=== PATIENT | female | born 1990 ===

== ENCOUNTER 2022-05-09 03:02 | Inpatient (IN) | payer OTHER ==
[2022-05-09] VITALS (10 sets, daily range): BP systolic 109–148; BP diastolic 52–81
[~2022-05-09] VITALS: Ht 157.5 cm; Wt 77.0 kg
[2022-05-09] MEDS ORDERED: OXYTOCIN INJ 10 UNITS/ML VIAL (J2590) IV PRN (03:55)
[2022-05-09] MEDS ORDERED: OXYTOCIN DRIP 30 UNITS in IV 1 EA IV PRN ×6 (03:55)
[2022-05-09] MEDS ORDERED: CARBOPROST TROMETHAMINE 250 MCG/ML AMP IM PRN (03:55)
[2022-05-09] MEDS ORDERED: OXYTOCIN INJ 10 UNITS/ML VIAL (J2590) IM PRN (03:55)
[2022-05-09] MEDS ORDERED: METHYLERGONOVINE MALEATE 0.2 MG/ML VIAL (J2210) IM PRN (03:55)
[2022-05-09] MEDS ORDERED: TRANEXAMIC ACID INJection 1,000 MG in NS 100 ML IV PRN (03:55)
[2022-05-09] MEDS ORDERED: LIDOCAINE 1% MDV 20ML VIAL INFIL PRN (03:55)
[2022-05-09] MEDS ORDERED: PROMETHAZINE 25MG/ML 1ML VIAL IV ONE (04:00)
[2022-05-09] MEDS ORDERED: BUTORPHANOL 2 MG/ML 1ML VIAL IV ONE (04:00)
[2022-05-09 04:13] LABS: HEMATOCRIT 38.9 % (36.0-47.0); HEMOGLOBIN 12.6 g/dl (12.0-15.5); MEAN CORPUSCULAR HEMOGLOBIN 27.8 pg (27.0-33.0); MEAN CORPUSCULAR HGB CONC 32.4 g/dl (32.0-36.5); MEAN CORPUSCULAR VOLUME 85.7 fl (80.0-96.0); PLATELET COUNT, AUTOMATED 299 10^3/uL (150-450); RED BLOOD COUNT 4.54 10^6/uL (4.00-5.40); WHITE BLOOD COUNT 11.3 10^3/uL (4.0-10.0)
[2022-05-09] MEDS ORDERED: PRENTAB9 PO (04:16)
[2022-05-09] MEDS ORDERED: DIBUCAINE 1% OINTMENT 30GM TOP PRN (06:10)
[2022-05-09] MEDS ORDERED: ANUSOL HC CREAM 30GM TOP PRN (06:10)
[2022-05-09] MEDS ORDERED: ACETAMINOPHEN TAB 650MG DOSE (2X325MG) PO PRN (06:10)
[2022-05-09] MEDS ORDERED: IBUPROFEN 800 MG TAB PO PRN (06:10)
[2022-05-09] MEDS ORDERED: METHYLERGONOVINE MALEATE 0.2 MG TAB PO PRN (06:10)
[2022-05-09] MEDS ORDERED: DOCUSATE SODIUM 100MG CAPSULE PO PRN (06:10)
[2022-05-09] MEDS: ACETAMINOPHEN 500 MG TAB PO PRN ×2 (06:30→16:03)
[2022-05-09] MEDS ORDERED: TRANEXAMIC ACID 100 MG/ML 10ML VIAL ONE (06:53)
[2022-05-09] MEDS ORDERED: METHYLERGONOVINE MALEATE 0.2 MG/ML VIAL (J2210) ONE (06:53)
[2022-05-09] MEDS: PRENATAL VITAMINS CHEWABLE TABLET PO SCH (09:21)
[2022-05-09] MEDS: IBUPROFEN 600MG TAB PO PRN (20:30)
[2022-05-10] MEDS: IBUPROFEN 600MG TAB PO PRN (04:46)
[2022-05-10 05:32] VITALS: BP 126/66
[2022-05-10 07:00] LABS: HEMATOCRIT 37.2 % (36.0-47.0); HEMOGLOBIN 12.1 g/dl (12.0-15.5); MEAN CORPUSCULAR HEMOGLOBIN 28.3 pg (27.0-33.0); MEAN CORPUSCULAR HGB CONC 32.5 g/dl (32.0-36.5); MEAN CORPUSCULAR VOLUME 86.9 fl (80.0-96.0); PLATELET COUNT, AUTOMATED 255 10^3/uL (150-450); RED BLOOD COUNT 4.28 10^6/uL (4.00-5.40)
[2022-05-10] MEDS: PRENATAL VITAMINS CHEWABLE TABLET PO SCH (09:47)
== END 2022-05-10 12:45 | disposition home or self-care (01) | DRG 560 ==
LOC: M LDO 03:02 → M LDI 03:37 → M OBS 09:10
PROVIDERS: ADMIT Advanced Practice Midwife; ATTEND Advanced Practice Midwife
PROC: 10E0XZZ Delivery of Products of Conception, External Approach (ICD-10-PCS; principal; 2022-05-09)
DX: O80 Encounter for full-term uncomplicated delivery (principal); Z37.0 Single live birth; Z3A.39 39 weeks gestation of pregnancy